=== PATIENT | female | born 1960 | race Caucasian/White ===

== ENCOUNTER → 2019-01-15 15:22 | Emergency (ER) | payer MEDICAID ==
[~2019-01-15 15:22] MED LIST: Amoxicillin/Clavulanate TAB* 875 MG PO ONE; Iohexol 300* (CONTRAST) 10 ML SDV IV ONE; NS 0.9% 1000 ML** 1,000 ML IV ONE; metroNIDAZOLE TAB* 250 MG PO ONE
[2019-01-15 17:27] LABS: ABS Basophils 0.1 10^3/ul (0-0.2); ABS Eosinophils 0.2 10^3/ul (0-0.6); ABS Monocytes 0.5 10^3/ul (0-0.8); ABS Neutrophils 8.1 10^3/ul (1.5-7.7); Eosinophil % 1.5 %; Hematocrit 42 % (35-47); Hemoglobin 14.3 g/dL (12.0-16.0); Lymphocyte % 18.8 %; Mean Corpuscular HGB Conc 34 g/dL (31-36); Mean Corpuscular Hemoglobin 31 pg (27-31); Mean Corpuscular Volume 92 fL (80-97); Mean Platelet Volume 7.4 fL (7.4-10.4); Nucleated Red Blood Cells % 0.1; Platelet Count 300 10^3/uL (150-450); Red Cell Distribution Width 13 % (10.5-15); White Blood Count 10.7 10^3/uL (3.5-10.8)
--- NOTE | 2019-01-15 17:48 | ED ---
GI/ HPI - HPI Summary HPI Summary: 58-year-old female presents with left lower quadrant. She states this feels similar to diverticulitis in the past. She denies any blood in her stool. No blood in her stool. She denies any nausea or vomiting. No decreased appetite. No cough. She denies any shortness breath or chest pain. Denies any urinary symptoms. States pain does radiate to the back. No abnormal vaginal discharge. No fevers. Has no medical conditions. - History of Current Complaint Chief Complaint: EDAbdPain Time Seen by Provider: 01/15/19 17:40 Stated Complaint: ABD PAIN PER PT Pain Intensity: 6 - Allergy/Home Medications Allergies/Adverse Reactions: Allergies Allergy/AdvReac Type Severity Reaction Status Date / Time No Known Allergies Allergy Verified 01/15/19 15:25 Home Medications: Home Medications Ascorbic Acid TAB* [Vitamin C TAB*] 500 mg PO DAILY 01/15/19 [History Confirmed 01/15/19] Calcium Carb,Gluc/Mag Ox,Gluc [Calcium Magnesium Caplet] 1 each PO DAILY [History Confirmed 01/15/19] Multivitamin [Multivitamins] 1 cap PO DAILY 01/15/19 [History Confirmed 01/15/19 ] Vitamin D TAB* 1 cap PO DAILY 01/15/19 [History Confirmed 01/15/19] PMH/Surg Hx/FS Hx/Imm Hx Endocrine/Hematology History: Denies: Hx Anticoagulant Therapy Respiratory History: Denies: Hx Asthma Infectious Disease History: No Infectious Disease History: Denies: Traveled Outside the [place] in Last 30 Days - Family History Known Family History: Positive: Non-Contributory - Social History Substance Use Type: Reports: None Smoking Status (MU): Never Smoked Tobacco Review of Systems Negative: Fever Negative: Chest Pain Negative: Shortness Of Breath Positive: Abdominal Pain. Negative: Vomiting, Diarrhea, Nausea All Other Systems Reviewed And Are Negative: Yes Physical Exam Triage Information Reviewed: Yes Vital Signs On Initial Exam: Initial Vitals Temp Pulse Resp BP Pulse Ox 97.2 F 88 18 160/105 97 01/15/19 15:23 01/15/19 15:23 01/15/19 15:23 01/15/19 15:23 01/15/19 15:23 Vital Signs Reviewed: Yes Appearance: Positive: Well-Appearing Skin: Positive: Warm, Dry Head/Face: Positive: Normal Head/Face Inspection Eyes: Positive: Normal, Conjunctiva Clear ENT: Positive: Pharynx normal Respiratory/Lung Sounds: Positive: Clear to Auscultation, Breath Sounds Present Cardiovascular: Positive: Normal, RRR Abdomen Description: Positive: Soft, Other: - tenderness LLQ Bowel Sounds: Positive: Present Musculoskeletal: Positive: Normal Neurological: Positive: Normal Psychiatric: Positive: Normal Diagnostics - Vital Signs Vital Signs Temp Pulse Resp BP Pulse Ox 01/15/19 15:23 97.2 F 88 18 160/105 97 - Laboratory Lab Results: Lab Results 01/15/19 01/15/19 Range/Units 17:04 17:04 WBC 10.7 (3.5-10.8) 10^3/uL RBC 4.60 (3.70-4.87) 10^6 /uL Hgb 14.3 (12.0-16.0) g/dL Hct 42 (35-47) % MCV 92 (80-97) fL MCH 31 (27-31) pg MCHC 34 (31-36) g/dL RDW 13 (10.5-15) % Plt Count 300 (150-450) 10^3/uL MPV 7.4 (7.4-10.4) fL Neut % (Auto) 75.0 % Lymph % (Auto) 18.8 % [place] % (Auto) 4.2 % Eos % (Auto) 1.5 % Baso % (Auto) 0.5 % Absolute Neuts (auto) 8.1 H (1.5-7.7) 10^3/ul Absolute Lymphs (auto) 2.0 (1.0-4.8) 10^3/ul Absolute Monos (auto) 0.5 (0-0.8) 10^3/ul Absolute Eos (auto) 0.2 (0-0.6) 10^3/ul Absolute Basos (auto) 0.1 (0-0.2) 10^3/ul Absolute Nucleated RBC 0.0 10^3/ul Nucleated RBC % 0.1 Lactic Acid 1.0 (0.5-2.0) mmol/L Result Diagrams: 01/15/19 17:04 01/15/19 17:04 Lab Statement: Any lab studies that have been ordered have been reviewed, and results considered in the medical decision making process. - CT abd CT Interpretation Completed By: Radiologist Summary of CT Findings: IMPRESSION: 1. Proximal sigmoid colon diverticulitis. No perforation or abscess. 2. Cholelithiasis with partially porcelain gallbladder. Re-Evaluation - Re-Evaluation First Eval Comment: feeling well GIGU Course/Dx - Course Course Of Treatment: 58-year-old female presents with left lower quadrant. She states this feels similar to diverticulitis in the past. She denies any blood in her stool. No blood in her stool. She denies any nausea or vomiting. No decreased appetite. No cough. She denies any shortness breath or chest pain. Denies any urinary symptoms. States pain does radiate to the back. No abnormal vaginal discharge. No fevers. Has no medical conditions. On exam has tenderness in left lower quadrant. wbc normal. crp elevated. CT abd diverticulitis. will start augmentin and flagyl. patient understand and agrees with plan. - Diagnoses Differential Diagnoses - Female: Diverticulitis, Ulcerative Colitis/Crohn's Disease, Urinary Tract Infection Provider Diagnoses: Diverticulitis Discharge - Sign-Out/Discharge Documenting (check all that apply): Patient Departure Patient Received Moderate/Deep Sedation with Procedure: No - Discharge Plan Condition: Good Disposition: HOME Prescriptions: Amoxicillin/Clavulanate TAB* [Augmentin TAB 875*] 875 mg PO BID #19 tab HYDROcodone/ACETAMIN 5-325 MG* [[place] 5-325 TAB*] 1 tab PO Q6H PRN #12 tab MDD 4 PRN Reason: Pain metroNIDAZOLE [Flagyl 500 MG TAB] 500 mg PO TID #29 tab Patient Education Materials: Diverticulitis (ED) Referrals: No Primary Care Phys,NOPCP [Primary Care Provider] - Additional Instructions: Take augmentin twice a day for 10 days, first dose given in ED Take Flagyl every 8 hours for 10 days, first dose given in ED take tyenlol as needed for pain every 6 hours, use norco every 6 hours as needed for pain Follow clear liquid diet until symptoms improve Return to ED if unable to keep anything down, develop fever, or any new or worsening symptoms - Billing Disposition and Condition Condition: GOOD Disposition: Home
[2019-01-15 19:08] LABS: Albumin 4.2 g/dL (3.2-5.2); Calcium 9.8 mg/dL (8.6-10.3); Potassium 3.9 mmol/L (3.5-5.0); Total Bilirubin 0.3 mg/dL (0.2-1.0)
[2019-01-15 19:14] LABS: Albumin/Globulin Ratio 1.4 (1-3); BUN/Creatinine Ratio 13.2 (8-20); C Reactive Protein 22.03 mg/L (<8.01); EGFR African American 108.3 (>60); EGFR Non-African American 89.5 (>60); Globulin 2.9 g/dL (2-4); Total Protein 7.1 g/dL (6.4-8.9)
[2019-01-15 19:19] LABS: Urine Appearance Clear; Urine Bacteria 1+ (Absent); Urine Bilirubin Negative (Negative); Urine Blood 1+ (Negative); Urine Color Straw; Urine Glucose Negative (Negative); Urine Ketones Negative (Negative); Urine Nitrite Negative (Negative); Urine Protein Negative (Negative); Urine Red Blood Cell Trace(0-2/hpf) (Absent); Urine Specific Gravity 1.005 (1.010-1.030); Urine Squamous Epithelial Cell Present (Absent); Urine Urobilinogen Negative (Negative); Urine White Blood Cell Trace(0-5/hpf) (Absent)
[2019-01-15 21:04] VITALS: BP 125/71
== END | disposition home or self-care (01) ==
LOC: ED 15:22
DX: K57.92 Diverticulitis of intestine, part unspecified, without perforation or abscess without bleeding (principal)
CPT/HCPCS: 36415; 74177; 80053; 81003; 81015; 83605; 83690; 85025; 86140; 87086; 96361; 96374; 99285; A9270-GY; Q9967